=== PATIENT | male | born 1960 ===

== ENCOUNTER 2018-09-12 14:32 | Emergency (ER) | payer SELFPAY ==
[2018-09-12 14:47] VITALS: BP 134/81
--- NOTE | 2018-09-12 19:46 | Emergency Department Report ---
ED Alcohol HPI - General Chief Complaint: Alcohol Stated Complaint: ETOH Time Seen by Provider: 09/12/18 14:45 Source: EMS Mode of arrival: Ambulatory Limitations: No Limitations - History of Present Illness Initial Comments: CC: "I am homeless. I am so hungry." Mr. Lees is a very pleasant 58-year-old male with a history of alcoholism who presents via EMS. He states that he just needssomething to eat. He denies any pain. He denies any medical concerns. He just needs food to eat. He stated that he did not drink alcohol today. MD Complaint: alcohol intoxication Last Drink: unknown Chronic Alcohol Use: Yes Recent Trauma: No Associated Symptoms: denies other symptoms Treatments Prior to Arrival: none - Related Data Home Medications Medication Instructions Recorded Confirmed Last Taken No Known Home Medications [No 09/12/18 09/12/18 Unknown Reported Home Medications] ED Review of Systems ROS: Stated complaint: ETOH Other details as noted in HPI Comment: All other systems reviewed and negative Constitutional: denies: fever, malaise Respiratory: denies: shortness of breath Cardiovascular: denies: chest pain Gastrointestinal: denies: abdominal pain ED Past Medical Hx - Past Medical History Previous Medical History?: No - Surgical History Past Surgical History?: No - Social History Smoking Status: Unknown if ever smoked Substance Use Type: Alcohol - Medications Home Medications: Home Medications Medication Instructions Recorded Confirmed Last Taken Type No Known Home Medications [No 09/12/18 09/12/18 Unknown History Reported Home Medications] ED Physical Exam - General Limitations: No Limitations General appearance: alert, in no apparent distress, appears intoxicated - Head Head exam: Present: atraumatic, normocephalic - Eye Eye exam: Present: PERRL, conjunctival injection. Absent: scleral icterus - ENT ENT exam: Present: mucous membranes moist - Neck Neck exam: Present: normal inspection, full ROM - Respiratory Respiratory exam: Present: normal lung sounds bilaterally. Absent: respiratory distress, wheezes, rales, rhonchi - Cardiovascular Cardiovascular Exam: Present: regular rate, normal rhythm, normal heart sounds. Absent: systolic murmur, diastolic murmur, rubs, gallop - GI/Abdominal GI/Abdominal exam: Present: soft, normal bowel sounds. Absent: distended, tenderness, rebound - Rectal Rectal exam: Present: deferred - Extremities Exam Extremities exam: Present: normal inspection - Back Exam Back exam: Present: normal inspection - Neurological Exam Neurological exam: Present: alert, oriented X3 - Psychiatric Psychiatric exam: Present: normal affect, normal mood - Skin Skin exam: Present: warm, dry, intact, normal color. Absent: rash ED Course Vital Signs 09/12/18 14:46 Temperature 98.4 F Pulse Rate 105 H Respiratory 16 Rate Blood Pressure 134/81 [Right] O2 Sat by Pulse 95 Oximetry ED Medical Decision Making - Medical Decision Making Mr. Lees is a 58-year-old male presents with acute intoxication and homelessness. He was given 3 meal trays. He was allowed to sleep in the emergency department for 6 hours. He is now discharged. Critical care attestation.: If time is entered above; I have spent that time in minutes in the direct care of this critically ill patient, excluding procedure time. ED Disposition Clinical Impression: Acute alcohol intoxication, Homelessness Disposition: DC-01 TO HOME OR SELFCARE Is pt being admited?: No Does the pt Need Aspirin: No Condition: Stable Instructions: Abuse of Alcohol (ED)
== END 2018-09-12 20:30 | disposition home or self-care (01) ==
LOC: EEVIPCON 14:32 → ED 14:32
DX: F10.129 Alcohol abuse with intoxication, unspecified (principal); Z59.0 Homelessness

== ENCOUNTER 2019-02-02 15:16 | Emergency (ER) | payer SELFPAY ==
[2019-02-02 16:41] VITALS: BP 139/82
--- NOTE | 2019-02-02 16:51 | Emergency Department Report ---
Chief Complaint: Back Pain/Injury Stated Complaint: BACK/FEET PAIN Time Seen by Provider: 02/02/19 16:50 - HPI History of Present Illness: pt presents with chronic back pain and chronic feet pain for several years he denies any fall or injury he denies any numbness, weakness, bowel or bladder incontinence he denies any fever no PMHx no allergies to meds no IVDU no steroid use on exam: no acute distress heart sounds are normal, no gallops, rubs, or murmur lung sounds are normal bilaterally, no w/r/r no midline or parapsinal C-spine, T-spine, or L-spine tenderness, no step offs, no deformities no edema or bony TTP of the bilateral feet, no skin changes, no ulceration, no erythema, FROM of the BLE, neurovascularly intact equal conservation scientist strength, 5/5 strength in the BUE/BLE, sensation intact throughout, no focal neuro deficit Patient has no red flag warning signs of back pain, no trauma, no unexplained weight loss, no neurological deficits, no fever, no IV drug use, no steroid use, no history of cancer pt is presenting with a non-medical emergency at this time medical screening examination performed and there is no threat to life or limb at this time will have patient follow-up with a primary care doctor for his chronic pain advised pt may take tylenol or ibuprofen for any pain. may use ice pack, heating pad, rest, epsom salt bath. follow up with a primary care doctor in the next 2-3 days. return to the emergency room for any new or worsening symptoms . - Exam Vital Signs: Vital Signs 02/02/19 16:38 Temperature 98.6 F Pulse Rate 111 H Respiratory 16 Rate Blood Pressure 139/82 O2 Sat by Pulse 96 Oximetry MSE screening note: Focused history and physical exam performed. ED Disposition for MSE Clinical Impression: Chronic pain of both feet Chronic back pain Qualifiers: Back pain location: low back pain Back pain laterality: unspecified Sciatica presence: without sciatica Qualified Code(s): M54.5 - Low back pain Disposition: Z- MED SCREENING EXAM-LEFT Is pt being admited?: No Does the pt Need Aspirin: No Condition: Stable Instructions: Chronic Back Pain (ED) Additional Instructions: may take tylenol or ibuprofen for any pain. may use ice pack, heating pad, rest, epsom salt bath. follow up with a primary care doctor in the next 2-3 days. return to the emergency room for any new or worsening symptoms . Referrals: [facility] [Outside] - 2-3 Days GEETA CORDERO MD [Staff Physician] - 2-3 Days Time of Disposition: 16:53 Print Language: LEBANESE
== END 2019-02-02 17:40 | disposition left against medical advice (07) ==
LOC: ED 15:16
DX: M79.672 Pain in left foot (principal); M79.671 Pain in right foot; M54.9 Dorsalgia, unspecified
CPT/HCPCS: 99282

== ENCOUNTER 2019-09-05 19:32 | Emergency (ER) | payer SELFPAY ==
[2019-09-05 19:53] VITALS: BP 128/81
[2019-09-05] MEDS ORDERED: HYDROcodone/ACETAMINOPHEN 5-325 MG TAB PO ONE (21:50)
--- NOTE | 2019-09-05 22:29 | Emergency Department Report ---
ED General Adult HPI - General Chief complaint: Pain General Stated complaint: WEAKNESS X 2 DAYS Time Seen by Provider: 09/05/19 21:47 Source: patient Mode of arrival: Ambulatory Limitations: No Limitations - History of Present Illness Initial comments: Patient is a 59-year-old -[place] male ED recorded reason for visit was noted as generalized weakness on exam patient advises bilateral foot pain described at 4/10 aching exacerbated by prolonged standing and walking. Patient denies weakness patient denies chest pain patient denies dizziness lightheadedness no nausea vomiting no back pain. Patient does advise homeless denies EtOH denies substance. Patient is alert oriented x3 at this time in no acute distress. Patient does endorse history of arthralgia. States he lives around [facility]. And states with multiple friends intermittently. Onset/Timin -: year(s) Severity scale (0 -10): 3 Quality: aching Consistency: intermittent Improves with: none Worsens with: movement - Related Data Previous Rx's Medication Instructions Recorded Last Taken Type Capsaicin 0.075% [Zostrix Hp 1 applicatio TP TID PRN #1 tube 09/05/19 Unknown Rx 0.075%] Allergies Allergy/AdvReac Type Severity Reaction Status Date / Time No Known Allergies Allergy Verified 09/05/19 19:51 ED Review of Systems ROS: Stated complaint: WEAKNESS X 2 DAYS Other details as noted in HPI Constitutional: denies: chills, fever Eyes: denies: eye pain, eye discharge, vision change ENT: denies: ear pain, throat pain Respiratory: denies: cough, shortness of breath, wheezing Cardiovascular: denies: chest pain, palpitations Endocrine: no symptoms reported Gastrointestinal: denies: abdominal pain, nausea, diarrhea Genitourinary: denies: urgency, dysuria Musculoskeletal: arthralgia Skin: as per HPI Neurological: denies: headache, weakness, paresthesias Psychiatric: as per HPI Hematological/Lymphatic: as per HPI ED Past Medical Hx - Past Medical History Previous Medical History?: No - Surgical History Past Surgical History?: No - Social History Smoking Status: Current Some Day Smoker Substance Use Type: None - Medications Home Medications: Home Medications Medication Instructions Recorded Confirmed Last Taken Type Capsaicin 0.075% [Zostrix Hp 1 applicatio TP TID PRN #1 tube 09/05/19 Unknown Rx 0.075%] ED Physical Exam - General Limitations: No Limitations General appearance: alert, in no apparent distress - Head Head exam: Present: atraumatic, normocephalic - Eye Eye exam: Present: normal appearance, PERRL, EOMI Pupils: Present: normal accommodation - ENT ENT exam: Present: mucous membranes moist - Neck Neck exam: Present: normal inspection, full ROM. Absent: tenderness - Respiratory Respiratory exam: Present: normal lung sounds bilaterally. Absent: respiratory distress, wheezes, stridor, chest wall tenderness - Cardiovascular Cardiovascular Exam: Present: regular rate, normal rhythm, normal heart sounds. Absent: systolic murmur, diastolic murmur, rubs, gallop - GI/Abdominal GI/Abdominal exam: Present: soft, normal bowel sounds. Absent: distended, tenderness, bruit, hernia - Rectal Rectal exam: Present: deferred - Extremities Exam Extremities exam: Present: normal inspection, full ROM, normal capillary refill. Absent: tenderness, pedal edema, joint swelling - Back Exam Back exam: Present: normal inspection, full ROM. Absent: tenderness, vertebral tenderness, rash noted - Neurological Exam Neurological exam: Present: alert, oriented X3, CN II-XII intact, normal gait, reflexes normal - Psychiatric Psychiatric exam: Present: normal affect, normal mood - Skin Skin exam: Present: warm, dry, intact, normal color. Absent: rash ED Course Vital Signs 09/05/19 09/05/19 19:47 19:53 Temperature 98.0 F Pulse Rate 102 H Respiratory 18 Rate Blood Pressure 128/81 O2 Sat by Pulse 96 Oximetry ED Medical Decision Making - Medical Decision Making pt improved with medications given in ed , plan dc to home , given referral to [facility]. advises will follow up in 2-3 days, pt denies other complaint at this time. will dc'd to self at this time. Critical care attestation.: If time is entered above; I have spent that time in minutes in the direct care of this critically ill patient, excluding procedure time. ED Disposition Clinical Impression: Arthralgia Qualifiers: Joint pain location: unspecified Qualified Code(s): M25.50 - Pain in unspecified joint Disposition: DC-01 TO HOME OR SELFCARE Is pt being admited?: No Does the pt Need Aspirin: No Condition: Stable Instructions: Arthralgia (ED) Prescriptions: Capsaicin 0.075% [Zostrix Hp 0.075%] 1 applicatio TP TID PRN #1 tube PRN Reason: pain Referrals: [facility] [Provider Group] - 3-5 Days
== END 2019-09-05 22:42 | disposition home or self-care (01) ==
LOC: ED 19:32
DX: M79.672 Pain in left foot (principal); M79.671 Pain in right foot; R53.1 Weakness; F17.200 Nicotine dependence, unspecified, uncomplicated; Z79.899 Other long term (current) drug therapy
CPT/HCPCS: 99282

== ENCOUNTER 2019-09-09 01:22 | Emergency (ER) | payer SELFPAY ==
[2019-09-09 09:05] VITALS: BP 140/89
--- NOTE | 2019-09-09 11:12 | Emergency Department Report ---
ED Alcohol HPI - General Chief Complaint: Alcohol Stated Complaint: ETOH Time Seen by Provider: 09/09/19 08:51 Source: EMS Mode of arrival: Ambulatory Limitations: No Limitations - History of Present Illness Initial Comments: 59-year-old male [place] EMS [place]. Patient has no complaints. MD Complaint: alcohol intoxication Chronic Alcohol Use: Yes Previous Visits for Alcohol Intoxication?: Yes Recent Trauma: No Associated Symptoms: denies other symptoms - Related Data Previous Rx's Medication Instructions Recorded Last Taken Type Capsaicin 0.075% [Zostrix Hp 1 applicatio TP TID PRN #1 tube 09/05/19 Unknown Rx 0.075%] Allergies Allergy/AdvReac Type Severity Reaction Status Date / Time No Known Allergies Allergy Verified 09/05/19 19:51 ED Review of Systems ROS: Stated complaint: ETOH Other details as noted in HPI Comment: All other systems reviewed and negative Cardiovascular: denies: chest pain Neurological: denies: headache ED Past Medical Hx - Past Medical History Previous Medical History?: No - Surgical History Past Surgical History?: No - Social History Smoking Status: Current Every Day Smoker Substance Use Type: Alcohol - Medications Home Medications: Home Medications Medication Instructions Recorded Confirmed Last Taken Type Capsaicin 0.075% [Zostrix Hp 1 applicatio TP TID PRN #1 tube 09/05/19 Unknown Rx 0.075%] ED Physical Exam - General Limitations: No Limitations General appearance: alert, in no apparent distress, other (appears unkempt) - Head Head exam: Present: atraumatic, normocephalic - Eye Eye exam: Present: normal appearance - ENT ENT exam: Present: mucous membranes moist - Neck Neck exam: Present: normal inspection - Respiratory Respiratory exam: Absent: respiratory distress - Cardiovascular Cardiovascular Exam: Present: regular rate, normal rhythm - GI/Abdominal GI/Abdominal exam: Absent: distended - Neurological Exam Neurological exam: Present: alert, oriented X3 - Psychiatric Psychiatric exam: Present: normal affect, normal mood - Skin Skin exam: Present: warm, dry, intact ED Course Vital Signs 09/09/19 09/09/19 01:40 09:03 Temperature 98.0 F Pulse Rate 98 H 91 H Respiratory 20 16 Rate Blood Pressure 124/77 Blood Pressure 140/89 [Right] O2 Sat by Pulse 94 97 Oximetry ED Medical Decision Making - Medical Decision Making Pt currently awake and alert. He is cooperative and appropriate. Gait is normal. ETOH level improved to 110. Pt observed further. Does not appear to be clinically intoxicated currently. Will d/c at this time. - Differential Diagnosis ETOH Critical care attestation.: If time is entered above; I have spent that time in minutes in the direct care of this critically ill patient, excluding procedure time. ED Disposition Clinical Impression: Alcohol intoxication, Homelessness Disposition: DC-01 TO HOME OR SELFCARE Is pt being admited?: No Condition: Stable Referrals: PAULETTE BOJORQUEZ MD [Primary Care Provider] - 3-5 Days
== END 2019-09-09 12:26 | disposition home or self-care (01) ==
LOC: ED 01:22
DX: F10.129 Alcohol abuse with intoxication, unspecified (principal); Z59.0 Homelessness; F17.200 Nicotine dependence, unspecified, uncomplicated; Z79.899 Other long term (current) drug therapy
CPT/HCPCS: 36415; 80320; G0480

== ENCOUNTER 2020-10-07 16:15 | Emergency (ER) | payer SELFPAY | END 2020-10-08 18:30 | disposition home or self-care (01) | LOC: ED 16:15 | DX: Z00.8 Encounter for other general examination (principal); Z53.21 Procedure and treatment not carried out due to patient leaving prior to being seen by health care provider ==